=== PATIENT | male | born 1940 | race Caucasian/White ===

== ENCOUNTER → 2018-10-06 | Outpatient (CLI) | payer MEDICARE | END | disposition home or self-care (01) | LOC: RAH 09:01 | PROVIDERS: ATTEND Internal Medicine Critical Care Medicine | DX: R09.89 Other specified symptoms and signs involving the circulatory and respiratory systems (principal); N20.0 Calculus of kidney; N28.9 Disorder of kidney and ureter, unspecified | CPT/HCPCS: 71046 ==

== ENCOUNTER → 2019-05-18 | Outpatient (CLI) | payer MEDICARE | END | disposition home or self-care (01) | LOC: RAH 11:15 | PROVIDERS: ATTEND Physical Medicine & Rehabilitation | DX: M54.16 Radiculopathy, lumbar region (principal) | CPT/HCPCS: 72100 ==

== ENCOUNTER → 2020-05-28 | Outpatient (CLI) | payer MEDICARE | END | disposition home or self-care (01) | LOC: RAH 10:59 | PROVIDERS: ATTEND Physical Medicine & Rehabilitation | DX: M16.12 Unilateral primary osteoarthritis, left hip (principal); M85.88 Other specified disorders of bone density and structure, other site | CPT/HCPCS: 73502 ==

== ENCOUNTER 2021-06-28 06:45 | Emergency (ER) | payer MEDICARE ==
[~2021-06-28] VITALS: Ht 167.6 cm; Wt 90.7 kg
[2021-06-28] MEDS ORDERED: DICYCLOMINE 20MG (10MG/ML) AMP IM SCH (07:27)
[2021-06-28 07:29] LABS: BASOPHILS % (AUTO) 0.3 % (0.0-5.0); EOSINOPHILS % (AUTO) 0.1 % (0.0-8.0); HEMATOCRIT 48.3 % (42-54); LYMPHOCYTES % (AUTO) 5.3 % (21.0-51.0); MEAN CORPUSCULAR HEMOGLOBIN 30.4 pg (27.0-33.0); MEAN CORPUSCULAR HGB CONC 34.4 g/dL (32.0-36.0); MEAN CORPUSCULAR VOLUME 88.5 fL (79-99); MONOCYTES % (AUTO) 8.1 % (3.0-13.0); NEUTROPHILS % (AUTO) 85.6 % (40.0-77.0); PLATELET COUNT (AUTO) 210 K/uL (130-400); RED BLOOD CELL COUNT(AUTO) 5.46 MIL/uL (4.50-6.20); RED CELL DISTRIBUTION WIDTH 15.1 % (11.0-15.5)
[2021-06-28 07:48] LABS: ALBUMIN 3.8 g/dL (3.5-5.0); CREATININE 1.3 mg/dL (0.5-1.5); MAGNESIUM 1.9 mg/dL (1.80-2.40); POTASSIUM 4.4 mmol/L (3.5-5.1); TOTAL PROTEIN, SERUM 7.7 g/dL (6.0-8.3)
[2021-06-28 08:30] LABS: APPEARANCE,URINE CLEAR (CLEAR); BILIRUBIN,URINE NEGATIVE (NEGATIVE); COLOR,URINE YELLOW (YELLOW); GLUCOSE, URINE (UA) 500 mg/dL (NEGATIVE); KETONES,URINE 15 mg/dL (NEGATIVE); LEUKOCYTE ESTERASE ,URINE NEGATIVE (NEGATIVE); NITRATE,URINE NEGATIVE (NEGATIVE); OCCULT BLOOD,URINE MODERATE (NEGATIVE); PH,URINE 5.5 (5.0-8.0); PROTEIN,URINE 100 mg/dL (NEGATIVE); UROBILINOGEN,URINE 0.2 mg/dL (0.2-1.0)
[2021-06-28 08:56] LABS: BACTERIA,URINE Few /HPF (None Seen); WBC,URINE 0-1 /HPF (0-1)
[2021-06-28 08:58] LABS: CALCIUM OXALATE CRYSTALS,UR Rare /LPF (None Seen); SQUAMOUS EPITHELIAL CELL,UR 0-2 /HPF (0-2)
[2021-06-28] MEDS ORDERED: CEFTRIAXONE 1G VIAL ONE (09:20)
[2021-06-28] MEDS ORDERED: KETOROLAC 15MG/ML VIAL (15MG/ML) ONE (09:21)
[2021-06-28] MEDS ORDERED: KETOROLAC 15MG/ML VIAL (15MG/ML) IV SCH (09:30)
[2021-06-28] MEDS ORDERED: CEFTRIAXONE 1G VIAL IVP SCH (09:30)
[2021-06-28] MEDS ORDERED: DICL50TA9 PO (09:57)
[2021-06-28] MEDS ORDERED: CEPH500B PO (09:57)
[2021-06-28 10:09] VITALS: BP 179/83
== END 2021-06-28 10:21 | disposition home or self-care (01) ==
LOC: EDH 06:45
DX: N20.1 Calculus of ureter (principal); K59.00 Constipation, unspecified; I10 Essential (primary) hypertension; E11.9 Type 2 diabetes mellitus without complications; E78.00 Pure hypercholesterolemia, unspecified; Z98.890 Other specified postprocedural states
CPT/HCPCS: 36415; 74176; 80053; 81001; 83735; 85025; 87088; 96372; 96374; 96375; 99285; J0500; J0696; J1885

== ENCOUNTER 2021-07-02 12:02 | Inpatient (IN) | payer MEDICARE ==
[~2021-07-02] VITALS: Ht 167.6 cm; Wt 94.6 kg
[~2021-07-02 12:02] MED LIST: CEPH500B PO; DICL50TA9 PO
[2021-07-02 12:53] LABS: BASOPHILS % (AUTO) 0.3 % (0.0-5.0); EOSINOPHILS % (AUTO) 2.9 % (0.0-8.0); HEMATOCRIT 47.6 % (42-54); LYMPHOCYTES % (AUTO) 24.9 % (21.0-51.0); MEAN CORPUSCULAR HEMOGLOBIN 30.5 pg (27.0-33.0); MEAN CORPUSCULAR HGB CONC 34.2 g/dL (32.0-36.0); MEAN CORPUSCULAR VOLUME 89.1 fL (79-99); MONOCYTES % (AUTO) 16.2 % (3.0-13.0); NEUTROPHILS % (AUTO) 54.9 % (40.0-77.0); PLATELET COUNT (AUTO) 211 K/uL (130-400); RED BLOOD CELL COUNT(AUTO) 5.34 MIL/uL (4.50-6.20); RED CELL DISTRIBUTION WIDTH 14.8 % (11.0-15.5); WHITE BLOOD COUNT (AUTO) 7.9 K/uL (4.8-10.8)
[2021-07-02 12:55] LABS: APPEARANCE,URINE CLEAR (CLEAR); BILIRUBIN,URINE NEGATIVE (NEGATIVE); COLOR,URINE YELLOW (YELLOW); GLUCOSE, URINE (UA) NEGATIVE (NEGATIVE); KETONES,URINE NEGATIVE (NEGATIVE); LEUKOCYTE ESTERASE ,URINE NEGATIVE (NEGATIVE); NITRATE,URINE NEGATIVE (NEGATIVE); OCCULT BLOOD,URINE TRACE-INTACT (NEGATIVE); PH,URINE 5.5 (5.0-8.0); PROTEIN,URINE NEGATIVE (NEGATIVE); UROBILINOGEN,URINE 0.2 mg/dL (0.2-1.0)
[2021-07-02] MEDS ORDERED: KETOROLAC 15MG/ML VIAL (15MG/ML) IV ONE (13:00)
[2021-07-02] MEDS ORDERED: ONDANSETRON 4MG INJ IVP ONE (13:00)
[2021-07-02 13:22] LABS: BACTERIA,URINE None Seen /HPF (None Seen); RBC,URINE 0-1 /HPF (0-1); SQUAMOUS EPITHELIAL CELL,UR 0-2 /HPF (0-2); WBC,URINE 0-1 /HPF (0-1)
[2021-07-02 13:36] LABS: CREATININE 1.6 mg/dL (0.5-1.5); POTASSIUM 4.3 mmol/L (3.5-5.1)
[2021-07-02 13:41] LABS: ALBUMIN 3.5 g/dL (3.5-5.0); BILIRUBIN,TOTAL 0.6 mg/dL (0.2-1.0); TOTAL PROTEIN, SERUM 7.3 g/dL (6.0-8.3)
[2021-07-02] MEDS ORDERED: KETOROLAC 15MG/ML VIAL (15MG/ML) IV PRN (14:00)
[2021-07-02] MEDS ORDERED: VITAD50000 PO (14:02)
[2021-07-02] MEDS ORDERED: AEC81 PO (14:07)
[2021-07-02] MEDS ORDERED: ACET-66 PO (14:07)
[2021-07-02] MEDS ORDERED: METO25TA6 PO (14:07)
[2021-07-02] MEDS ORDERED: METF-444 PO (14:07)
[2021-07-02] MEDS ORDERED: GLIP5TAB11 PO (14:07)
[2021-07-02] MEDS ORDERED: TAMS-1 PO (14:07)
[2021-07-02] MEDS ORDERED: CHOL500050 PO (14:13)
[2021-07-02] MEDS ORDERED: VITA-300 PO (14:13)
[2021-07-02] MEDS ORDERED: LORA0.5P MC (14:13)
[2021-07-02] MEDS: CEFTRIAXONE 2GM VIAL IVP SCH (14:57)
[2021-07-02] MEDS ORDERED: 0.9%NACL 1000ML 500 ML IV ONE (16:30)
[2021-07-02] MEDS ORDERED: MORPHINE 2 MG SYG ONE (16:58)
[2021-07-02] MEDS ORDERED: MORPHINE 2 MG SYG IVP ONE (17:30)
[2021-07-02 18:55] VITALS: BP 177/88
[2021-07-02] MEDS: METOPROLOL TARTRATE 25 MG TAB PO SCH (20:32)
[2021-07-02 21:07] VITALS: BP 168/83
[2021-07-03] VITALS (7 sets, daily range): BP systolic 111–158; BP diastolic 68–80
[2021-07-03] MEDS ORDERED: ZOLPIDEM TARTRATE 5 MG TAB ONE ×2 (01:38→23:32)
[2021-07-03] MEDS ORDERED: ZOLPIDEM TARTRATE 5 MG TAB PO ONE ×2 (02:00→23:30)
[2021-07-03 06:41] LABS: CREATININE,URINE RANDOM 25 mg/dL (30-135); SODIUM,URINE RANDOM 63 mmol/l (40-220)
[2021-07-03] MEDS: METOPROLOL TARTRATE 25 MG TAB PO SCH ×2 (08:03→20:36)
[2021-07-03] MEDS: TAMSULOSIN HCL 0.4 MG CAP.ER.24H PO SCH (08:03)
[2021-07-03] MEDS: PANTOPRAZOLE 40 MG/VIAL IVP SCH (08:03)
[2021-07-03] MEDS ORDERED: ASPIRIN 81 MG EC TAB PO SCH (09:00)
[2021-07-03 09:41] LABS: HEMATOCRIT 42.2 % (42-54); MEAN CORPUSCULAR HEMOGLOBIN 30.6 pg (27.0-33.0); MEAN CORPUSCULAR HGB CONC 33.9 g/dL (32.0-36.0); MEAN CORPUSCULAR VOLUME 90.2 fL (79-99); RED BLOOD CELL COUNT(AUTO) 4.68 MIL/uL (4.50-6.20); RED CELL DISTRIBUTION WIDTH 14.6 % (11.0-15.5); WHITE BLOOD COUNT (AUTO) 7.4 K/uL (4.8-10.8)
[2021-07-03 09:54] LABS: CREATININE 1.7 mg/dL (0.5-1.5); POTASSIUM 4.8 mmol/L (3.5-5.1)
[2021-07-03] MEDS ORDERED: MORPHINE 2 MG SYG IVP PRN (12:30)
[2021-07-03] MEDS: CEFTRIAXONE 2GM VIAL IVP SCH (13:47)
[2021-07-04] VITALS (21 sets, daily range): BP systolic 151–200; BP diastolic 82–101
[2021-07-04 04:51] LABS: HEMATOCRIT 43.9 % (42-54); MEAN CORPUSCULAR HEMOGLOBIN 30.9 pg (27.0-33.0); MEAN CORPUSCULAR HGB CONC 34.2 g/dL (32.0-36.0); MEAN CORPUSCULAR VOLUME 90.3 fL (79-99); RED BLOOD CELL COUNT(AUTO) 4.86 MIL/uL (4.50-6.20); RED CELL DISTRIBUTION WIDTH 14.3 % (11.0-15.5); WHITE BLOOD COUNT (AUTO) 7.6 K/uL (4.8-10.8)
[2021-07-04 05:27] LABS: CREATININE 1.6 mg/dL (0.5-1.5); POTASSIUM 4.5 mmol/L (3.5-5.1)
[2021-07-04] MEDS: PANTOPRAZOLE 40 MG/VIAL IVP SCH (07:53)
[2021-07-04] MEDS: METOPROLOL TARTRATE 25 MG TAB PO SCH (07:54)
[2021-07-04] MEDS: TAMSULOSIN HCL 0.4 MG CAP.ER.24H PO SCH (07:54)
[2021-07-04] MEDS ORDERED: 0.9%NACL 1000ML 1,000 ML IV ONE (10:17)
[2021-07-04] MEDS ORDERED: IOHEXOL-350 50ML VIAL IV ONE (11:31)
[2021-07-04] MEDS ORDERED: SUCCINYLCHOLINE 200MG/10ML SYR ONE (12:07)
[2021-07-04] MEDS ORDERED: MIDAZOLAM HCL 1 MG/ML 2ML VIAL ONE (12:07)
[2021-07-04] MEDS ORDERED: FENTANYL CITRATE PF 50 MCG/1 ML 2ML VIAL ONE (12:07)
[2021-07-04] MEDS ORDERED: PROPOFOL 10 MG/ML 20ML VIAL IV ONE (12:07)
[2021-07-04] MEDS ORDERED: ROCURONIUM 10MG/1ML SYR 10 MG/ML ML ONE (12:07)
[2021-07-04] MEDS ORDERED: EPHEDRINE SULFATE 50 MG/ML AMPULE ONE (12:47)
[2021-07-04] MEDS ORDERED: GLYCOPYRROLATE 1 MG/5 ML SYRINGE ONE (13:45)
[2021-07-04] MEDS ORDERED: NEOSTIGMINE 5MG/5ML SYR IV ONE (13:45)
[2021-07-04] MEDS: CEFTRIAXONE 2GM VIAL IVP SCH (14:00)
[2021-07-04] MEDS ORDERED: MEPERIDINE-PF 25 MG/ML SYG ONE (14:19)
[2021-07-04] MEDS ORDERED: LABETALOL 20MG SYG IV ONE (15:03)
[2021-07-04] MEDS ORDERED: HYDRALAZINE 20MG/ML VIAL IV PRN (16:00)
[2021-07-04] MEDS: CLONIDINE HCL 0.1 MG TABLET PO ONE ×3 (16:18→16:51)
[2021-07-04] MEDS ORDERED: CLONIDINE HCL 0.1 MG TABLET PO PRN (17:00)
== END 2021-07-04 18:30 | disposition home or self-care (01) | DRG 661 ==
LOC: EDH 12:13 → EDHIP 13:33 → 3AH 18:54
PROVIDERS: ADMIT Hospitalist; ATTEND Hospitalist
PROC: 0T768DZ Dilation of Right Ureter with Intraluminal Device, Via Natural or Artificial Opening Endoscopic (ICD-10-PCS; principal; 2021-07-04 12:09)
PROC: 0TC68ZZ Extirpation of Matter from Right Ureter, Via Natural or Artificial Opening Endoscopic (ICD-10-PCS; 2021-07-04 12:09)
PROC: BT1D1ZZ Fluoroscopy of Right Kidney, Ureter and Bladder using Low Osmolar Contrast (ICD-10-PCS; 2021-07-04 12:09)
DX: N13.2 Hydronephrosis with renal and ureteral calculous obstruction (principal); N17.9 Acute kidney failure, unspecified; E11.9 Type 2 diabetes mellitus without complications; I10 Essential (primary) hypertension; K57.90 Diverticulosis of intestine, part unspecified, without perforation or abscess without bleeding; Z20.822 Contact with and (suspected) exposure to COVID-19; Z96.653 Presence of artificial knee joint, bilateral; Z88.8 Allergy status to other drugs, medicaments and biological substances; Z87.442 Personal history of urinary calculi; Z83.3 Family history of diabetes mellitus
CPT/HCPCS: 36415; 71045; 74018; 74176; 74420; 80048; 80053; 81001; 82360; 82570; 82948; 84300; 84484; 85025; 85027; 87088; 87635; 93005; A4344; A4354; C1758; C1769; C2617; C9113; G0378; J0330; J0696; J1885; J2175; J2250; J2405; J2704; J2710; J3010; J3490; J7030; Q9967

== ENCOUNTER → 2021-07-12 | Outpatient (CLI) | payer MEDICARE ==
[~2021-07-12] MED LIST changes: +ACET-66 PO; +AEC81 PO; -CEPH500B PO; +CHOL500050 PO; -DICL50TA9 PO; +GLIP5TAB11 PO; +LORA0.5P MC; +METF-444 PO; +METO25TA6 PO; +TAMS-1 PO; +VITA-300 PO
== END | disposition home or self-care (01) ==
LOC: RAH 15:22
PROVIDERS: ATTEND Urology
DX: N20.1 Calculus of ureter (principal); Z98.890 Other specified postprocedural states
CPT/HCPCS: 74018

== ENCOUNTER 2021-12-11 10:22 | Inpatient (IN) | payer MEDICARE ==
[~2021-12-11] VITALS: Ht 167.6 cm; Wt 93.7 kg
[2021-12-11 10:54] LABS: BASOPHILS % (AUTO) 0.3 % (0.0-5.0); EOSINOPHILS % (AUTO) 0.4 % (0.0-8.0); HEMATOCRIT 45.5 % (42-54); LYMPHOCYTES % (AUTO) 15.2 % (21.0-51.0); MEAN CORPUSCULAR HEMOGLOBIN 31.9 pg (27.0-33.0); MEAN CORPUSCULAR HGB CONC 34.9 g/dL (32.0-36.0); MEAN CORPUSCULAR VOLUME 91.2 fL (79-99); MONOCYTES % (AUTO) 9.6 % (3.0-13.0); NEUTROPHILS % (AUTO) 74.1 % (40.0-77.0); PLATELET COUNT (AUTO) 245 K/uL (130-400); RED BLOOD CELL COUNT(AUTO) 4.99 MIL/uL (4.50-6.20); RED CELL DISTRIBUTION WIDTH 14.7 % (11.0-15.5); WHITE BLOOD COUNT (AUTO) 10.4 K/uL (4.8-10.8)
[2021-12-11 10:55] LABS: APPEARANCE,URINE CLEAR (CLEAR); BILIRUBIN,URINE NEGATIVE (NEGATIVE); COLOR,URINE YELLOW (YELLOW); GLUCOSE, URINE (UA) 500 mg/dL (NEGATIVE); KETONES,URINE NEGATIVE (NEGATIVE); LEUKOCYTE ESTERASE ,URINE NEGATIVE (NEGATIVE); NITRATE,URINE NEGATIVE (NEGATIVE); OCCULT BLOOD,URINE TRACE-LYSED (NEGATIVE); PROTEIN,URINE 30 mg/dL (NEGATIVE); UROBILINOGEN,URINE 0.2 mg/dL (0.2-1.0)
[2021-12-11 11:15] LABS: ALBUMIN 3.8 g/dL (3.5-5.0); CREATININE 1.2 mg/dL (0.5-1.5); POTASSIUM 4.2 mmol/L (3.5-5.1); TOTAL PROTEIN, SERUM 7.6 g/dL (6.0-8.3)
[2021-12-11 11:18] LABS: BACTERIA,URINE Rare /HPF (None Seen); MUCUS,URINE Rare LPF (None Seen); RBC,URINE None Seen /HPF (0-1); SQUAMOUS EPITHELIAL CELL,UR Rare /HPF (0-2); WBC,URINE 0-1 /HPF (0-1)
[2021-12-11] MEDS ORDERED: 0.9% NACL 500ML IV.SOLN 500 ML IV SCH (11:30)
[2021-12-11] MEDS ORDERED: ACETAMINOPHEN WITH CODEINE 1 TAB TAB PO ONE (11:30)
[2021-12-11] MEDS ORDERED: CLINDAMYCIN IVPB 600MG/50ML 50 ML IV SCH (11:30)
[2021-12-11 11:33] LABS: INR 0.94 (0.85-1.15); PROTHROMBIN TIME 10.3 SEC (9.6-11.6)
[2021-12-11 11:34] LABS: PARTIAL THROMBOPLASTIN TIME 24.2 SEC (26.3-35.5)
[2021-12-11] MEDS ORDERED: ACET-3540 PO (12:52)
[2021-12-11] MEDS ORDERED: FLUT16H NASAL (12:52)
[2021-12-11] MEDS ORDERED: GLIP5TAB11 PO (12:52)
[2021-12-11] MEDS ORDERED: TRAM50TA4 PO (12:52)
[2021-12-11] MEDS ORDERED: NITROGLYCERIN 0.4 MG SL TAB SL PRN (16:30)
[2021-12-11] MEDS: INSULIN HUMULIN R 100 UNIT/ML 3ML SQ SCH ×2 (16:30→21:00)
[2021-12-11] MEDS ORDERED: DEXTROSE 50%-WATER 50 ML DISP.SYRIN IV PRN (16:30)
[2021-12-11] MEDS ORDERED: GUAIFENESIN-DM 200/20 MG 10 ML PO PRN (16:30)
[2021-12-11] MEDS ORDERED: GLUCAGON 1MG KIT 1 MG ML IM PRN (16:30)
[2021-12-11] MEDS ORDERED: DiphenhydrAMINE HCL 50 MG/ML VIAL IV PRN (16:30)
[2021-12-11] MEDS ORDERED: ACETAMINOPHEN 325 MG TAB PO PRN ×2 (16:30)
[2021-12-11] MEDS ORDERED: LACTULOSE 20 GM/30 ML UDCUP PO PRN (16:30)
[2021-12-11] MEDS ORDERED: ONDANSETRON 4MG INJ IV PRN (16:30)
[2021-12-11] MEDS: METOPROLOL TARTRATE 25 MG TAB PO SCH ×2 (17:29→21:13)
[2021-12-11] MEDS ORDERED: HEPARIN 25,000 UNITS/250ML D5W 250 ML IV SCH (17:30)
[2021-12-11] MEDS ORDERED: TRAMADOL HCL 50 MG TABLET PO PRN (17:30)
[2021-12-11 18:25] VITALS: BP 155/99
[2021-12-11 20:53] VITALS: BP 125/76
[2021-12-11] MEDS ORDERED: METOPROLOL TARTRATE 25 MG TAB PO SCH (21:00)
[2021-12-11] MEDS: FAMOTIDINE 20MG TAB PO SCH (21:13)
[2021-12-11] MEDS: APIXABAN 5 MG TABLET PO SCH (21:13)
[2021-12-11] MEDS: DOCUSATE SODIUM 100 MG CAP PO SCH (22:18)
[2021-12-12 00:20] VITALS: BP 137/81
[2021-12-12 03:32] VITALS: BP 159/72
[2021-12-12 06:28] LABS: HEMATOCRIT 42.5 % (42-54); MEAN CORPUSCULAR HEMOGLOBIN 31.6 pg (27.0-33.0); MEAN CORPUSCULAR HGB CONC 34.1 g/dL (32.0-36.0); MEAN CORPUSCULAR VOLUME 92.6 fL (79-99); RED BLOOD CELL COUNT(AUTO) 4.59 MIL/uL (4.50-6.20); RED CELL DISTRIBUTION WIDTH 14.8 % (11.0-15.5); WHITE BLOOD COUNT (AUTO) 6.9 K/uL (4.8-10.8)
[2021-12-12 06:35] LABS: CREATININE 1.1 mg/dL (0.5-1.5); POTASSIUM 3.9 mmol/L (3.5-5.1)
[2021-12-12] MEDS: INSULIN HUMULIN R 100 UNIT/ML 3ML SQ SCH ×3 (06:48→16:30)
[2021-12-12] MEDS ORDERED: METO50TA18 PO (07:20)
[2021-12-12] MEDS ORDERED: APIX5TAB PO (07:20)
[2021-12-12 08:06] VITALS: BP 139/60
[2021-12-12] MEDS: FAMOTIDINE 20MG TAB PO SCH (08:26)
[2021-12-12] MEDS: METOPROLOL TARTRATE 25 MG TAB PO SCH (08:26)
[2021-12-12] MEDS: DOCUSATE SODIUM 100 MG CAP PO SCH (08:27)
[2021-12-12] MEDS: APIXABAN 5 MG TABLET PO SCH (08:27)
[2021-12-12] MEDS ORDERED: TAMSULOSIN HCL 0.4 MG CAP.ER.24H PO SCH (09:00)
[2021-12-12] MEDS ORDERED: VITAMIN K2 PO SCH (09:00)
[2021-12-12] MEDS ORDERED: ENOXAPARIN SODIUM 40 MG/0.4 ML SYRINGE SQ SCH (09:00)
[2021-12-12] MEDS ORDERED: VITAMIN D3 PO SCH (09:00)
[2021-12-12] MEDS ORDERED: ASPIRIN 81 MG EC TAB PO SCH (09:00)
[2021-12-12] MEDS ORDERED: CHOLECALCIFEROL 1000 MCG PO SCH (09:00)
[2021-12-12 11:32] VITALS: BP 137/78
[2021-12-12 16:00] VITALS: BP 151/80
== END 2021-12-12 17:30 | disposition home or self-care (01) | DRG 310 ==
LOC: EDH 10:22 → UNDOADMOB 13:00 → EDHIP 13:00 → OBSVTOIN 13:00 → INTOOBSV 13:00 → EDHIP 16:07 → OBSVTOIN 16:07 → 2DH 18:16
PROVIDERS: ADMIT Internal Medicine; ATTEND Internal Medicine
DX: I48.91 Unspecified atrial fibrillation (principal); I10 Essential (primary) hypertension; E11.9 Type 2 diabetes mellitus without complications; E66.01 Morbid (severe) obesity due to excess calories; M54.9 Dorsalgia, unspecified; G89.29 Other chronic pain; Z96.653 Presence of artificial knee joint, bilateral; Z87.442 Personal history of urinary calculi; Z79.01 Long term (current) use of anticoagulants; Z51.5 Encounter for palliative care; Z68.33 Body mass index [BMI] 33.0-33.9, adult
CPT/HCPCS: 36415; 71045; 80048; 80053; 81001; 82550; 82948; 83735; 83874; 83880; 84443; 84484; 85025; 85027; 85610; 85730; 93005; 93306; 93356; G0378; J1200

== ENCOUNTER → 2024-03-04 | Outpatient (CLI) | payer MEDICARE ==
[~2024-03-04] MED LIST changes: +ACET-3540 PO; -AEC81 PO; +APIX5TAB PO; +FLUT16H NASAL; -GLIP5TAB11 PO; +GLIP5TAB15 PO; -METO25TA6 PO; +METO50TA18 PO; +TRAM50TA4 PO
== END | disposition home or self-care (01) ==
LOC: RAH 07:45
PROVIDERS: ATTEND Physical Medicine & Rehabilitation
DX: S46.011A Strain of muscle(s) and tendon(s) of the rotator cuff of right shoulder, initial encounter (principal); M19.011 Primary osteoarthritis, right shoulder; M25.411 Effusion, right shoulder; X58.XXXA Exposure to other specified factors, initial encounter; Y93.89 Activity, other specified; Y92.89 Other specified places as the place of occurrence of the external cause; Y99.8 Other external cause status
CPT/HCPCS: 73221

== ENCOUNTER → 2024-05-02 | Outpatient (CLI) | payer MEDICARE ==
[2024-05-02 16:52] LABS: CREATININE 1.4 mg/dL (0.5-1.3); POTASSIUM 4.3 mmol/L (3.5-5.1)
== END | disposition home or self-care (01) ==
LOC: LAB 13:58
PROVIDERS: ATTEND Internal Medicine Cardiovascular Disease
DX: I10 Essential (primary) hypertension (principal)
CPT/HCPCS: 36415; 80048

== ENCOUNTER → 2024-05-10 | Outpatient (CLI) | payer MEDICARE ==
--- NOTE | 2024-05-10 14:24 | HMCIMG ---
CT HEAD/BRAIN W/O CONTRAST HISTORY: Stroke COMPARISON: None TECHNIQUE: Multiple sequential axial images of the head were obtained from the base of the skull through vertex. Patient was not given contrast through intravenous route. FINDINGS: The ventricles and extraventricular CSF spaces are dilated consistent with cerebral atrophy. Nonspecific white matter changes seen. There is no midline shift, mass effect or herniation. No acute intracranial bleed is seen. Visualized portion of the paranasal sinuses are grossly within normal limits. IMPRESSION: 1. No acute intracranial bleed is seen. 2. Atrophy with white matter changes. CT was performed with one or more following dose reduction techniques: automated exposure control, adjustment of the mA and kv according to patient's size, or use of a iterative reconstruction technique.
== END | disposition home or self-care (01) ==
LOC: RAH 12:51
PROVIDERS: ATTEND Internal Medicine Cardiovascular Disease
DX: R90.82 White matter disease, unspecified (principal); R42 Dizziness and giddiness; Z86.73 Personal history of transient ischemic attack (TIA), and cerebral infarction without residual deficits
CPT/HCPCS: 70450